=== PATIENT | female | born 1945 | race Caucasian/White ===

== ENCOUNTER → 2019-04-14 10:19 | Outpatient (BNVA) | payer MEDICARE, MEDICAID, SELFPAY | PROVIDERS: Family Provider Internal Medicine; PCP Internal Medicine; Visit Provider Nurse Practitioner | DX: M51.36 Other intervertebral disc degeneration, lumbar region (principal); M47.816 Spondylosis without myelopathy or radiculopathy, lumbar region; G47.00 Insomnia, unspecified; F17.220 Nicotine dependence, chewing tobacco, uncomplicated; Z79.891 Long term (current) use of opiate analgesic | CPT/HCPCS: 99214 ==

== ENCOUNTER → 2019-06-08 09:18 | Outpatient (BNVA) | payer MEDICARE, MEDICAID, SELFPAY | PROVIDERS: Family Provider Internal Medicine; PCP Internal Medicine; Visit Provider Nurse Practitioner | DX: Z76.89 Persons encountering health services in other specified circumstances (principal) | CPT/HCPCS: 99213 ==

== ENCOUNTER → 2019-09-22 08:48 | Outpatient (BNVA) | payer MEDICARE, MEDICAID, SELFPAY | PROVIDERS: Family Provider Internal Medicine; PCP Internal Medicine; Visit Provider Nurse Practitioner | DX: G89.29 Other chronic pain (principal); M54.42 Lumbago with sciatica, left side; M54.41 Lumbago with sciatica, right side; M47.816 Spondylosis without myelopathy or radiculopathy, lumbar region; M51.36 Other intervertebral disc degeneration, lumbar region; M54.9 Dorsalgia, unspecified; G47.00 Insomnia, unspecified; F17.220 Nicotine dependence, chewing tobacco, uncomplicated; Z79.891 Long term (current) use of opiate analgesic; Z71.6 Tobacco abuse counseling | CPT/HCPCS: 99213; 99214 ==

== ENCOUNTER 2019-11-17 19:51 | Inpatient (IN) | payer MEDICARE, MEDICAID, SELFPAY ==
[2019-11-17 19:52] VITALS: BP 178/102; PULSE 89; RESP 18; TEMP 36.7; O2SAT 96; BMI 22.1
--- NOTE | 2019-11-17 19:56 | CTR_ITS ---
PROCEDURE INFORMATION: Exam: CT Head Without Contrast Exam date and time: 11/17/2019 8:03 PM Age: 74 years old Clinical indication: Pain; Dizziness and weakness, extremity; Bilateral; Headache; Additional info: CHEN TECHNIQUE: Imaging protocol: Computed tomography of the head without contrast. Radiation optimization: All CT scans at this facility use at least one of these dose optimization techniques: automated exposure control; mA and/or kV adjustment per patient size (includes targeted exams where dose is matched to clinical indication); or iterative reconstruction. COMPARISON: No relevant prior studies available. RADIATION DOSE METRICS: Total DLP (mGy-cm): 793.19 FINDINGS: Brain: Mild cerebral atrophy and ischemic leukoencephalopathy. Ventricles: Normal. No ventriculomegaly. Bones/joints: Unremarkable. No acute fracture. Sinuses: Mild right ethmoid, sphenoid and frontal sinus disease. Mastoid air cells: Visualized mastoid air cells are well aerated. Vasculature: Severe calcified intracranial atherosclerotic vessel disease. Soft tissues: Unremarkable. CT/CT head wo con* [id number] IMPRESSION: 1. Mild right ethmoid, sphenoid and frontal sinus disease. 2. No acute intracranial findings. Radiation Dose CTDIVOL = (mGy): DLP = 793.19 (mGy-cm)
--- NOTE | 2019-11-17 19:56 | XR_ITS ---
WS: [id number] Portable AP upright chest, 11/17/2019 Clinical Data: weakness Comparison: PA and lateral chest, 10/07/2018. Findings: No nodules, masses or effusions are seen. The heart is normal. The pulmonary vascularity is not increased. There are bilateral lower lobe patchy opacities which will may represent atelectasis or early pneumonia. No pneumothorax is seen. The aortic arch and descending aorta show tortuosity. T here is a bone infarct or an chondroma in the proximal right humerus. XR/XR chest 1V portable [id number] Impression: 1. Bilateral lower lobe patchy opacities which could represent atelectasis or m inimal pneumonia. 2. Recommend repeat chest x-ray in 2-3 days. 3. Atherosclerosis.
--- NOTE | 2019-11-17 19:57 | ECG_ITS ---
[facility] Test Date: 2019-11-17 Pat Name: Catarina Joseph Department: Room: Gender: Female Cardiac Rn: : 1945 Requested By: Mary Gracia Order Number: [id number] Constantin MD: Ishan Celis M.D. Measurements Intervals [place] Rate: 82 P: 7 SC: 168 QRS: -5 QRSD: 98 T: 16 QT: 362 QTc: 424 Interpretive Statements SINUS RHYTHM POSSIBLE RIGHT VENTRICULAR CONDUCTION DELAY [RSR (QR) IN V1/V2] VOLTAGE CRITERIA FOR LVH [MEETS CRITERIA IN ONE OF: R(aVL), S(V1), R(V5), R(V5/V6)+S(V1)] Compared to ECG 04/17/2014 02:58:46 Left ventricular hypertrophy now present Electronically Signed On 11-18-2019 21:12:59 CDT by Ishan Celis M.D. [id number]
--- NOTE | 2019-11-17 20:08 | ED_ITS ---
HPI - Weakness General: Chief complaint: Weakness Stated complaint: weakness Time Seen by Provider: 11/17/19 19:51 Source: patient and EMS Mode of arrival: EMS Limitations: no limitations History of Present Illness: HPI Narrative: 74-year-old female states she has been having shakiness along with slight weakness over the last day. Per EMS she gets constipated after bowel movement she has these issues it seems it is been going on for months. She states she was constipated had a bowel movement today and was quite weak. She states she had some difficulty walking. She had a headache she rates a 4 out of 10. Denies any fevers. Denies any vomiting or diarrhea. MD Complaint: generalized weakness Associated symptoms: Reports headache(s); Denies chest pain, chills, dysuria, easy bruising or fever(s) Review of Systems Const: Denies: fever(s), chills, body aches or change in appetite Eyes: Denies: blurry vision or eye discomfort ENMT: Denies: throat pain or dental pain Card: Denies: chest pain Resp: Denies: dyspnea GI: Reports: constipation : Denies: dysuria Musc: Denies: neck pain or back pain Skin/Breast: Denies: rash Neuro: Reports: headache(s) and weakness in extremities Psych: Denies: depression Catalino/Lymph: Denies: easy bruising All/Imm: Denies: urticaria PFSH ED PFSH: Medical History (Updated 11/18/19 @ 00:47 by Mary Gracia MD) Chewing tobacco nicotine dependence Encounter for long-term opiate analgesic use Facet arthritis of lumbar region History of hemorrhoids hemorrhoidectomy Lumbar degenerative disc disease Opioid contract exists Surgical History History of intestinal surgery Dr. Sutherland-cleared blockage in the bowels Hx of appendectomy Hx of oophorectomy Hx of tubal ligation Family History Unknown Cancer Diabetes Heart disease Social History Smoking and tobacco status: current every day smoker smokeless tobacco Smokeless tobacco details: 1 can every 2-3 days Alcohol intake: never Physical Exam Const: COMMON NORMALS: no acute distress, patient oriented x3 and healthy appearing HENMT: COMMON NORMALS: normocephalic and atraumatic HEAD & SCALP: normocephalic and atraumatic Eye: COMMON NORMALS: Equal, round and reactive pupils present and EOMs intact bilaterally PUPIL: Yes Equal, round and reactive pupils present Neck/C-Spine: COMMON NORMALS: full ROM and supple Chest: COMMONS NORMALS: normal inspection of the chest and normal palpation of entire chest wall Resp: COMMON NORMALS: normal respiratory effort, No retractions, No use of accessory muscles and clear to auscultation bilaterally AUSCULTATION: clear to auscultation bilaterally Cardio: COMMON NORMALS: regular rate, regular rhythm and No murmurs present (Cardio) RATE: regular rate RHYTHM: regular rhythm GI: COMMON NORMALS: Normal to inspection, nondistended, normoactive bowel sounds present, Soft to palpation, non-tender and no masses PALPATION: Yes Soft to palpation Extremity: COMMON NORMALS: normal to inspection and full ROM Neuro: COMMON NORMALS: patient oriented x3, moves all extremities and no focal motor deficits Psych: COMMON NORMALS: mental status grossly normal, Normal thought process present and cooperative THOUGHT PROCESS: Normal thought process present Skin: COMMON NORMALS: no rashes or lesions noted and no wounds GENERAL SKIN EXAM: no rashes or lesions noted Course Vital Signs: Vital signs: Vital Signs Temperature 98.0 F 11/17/19 19:52 Pulse Rate 76 11/17/19 22:58 Respiratory Rate 16 11/17/19 22:58 Blood Pressure 208/109 11/17/19 22:58 Pulse Oximetry 94 11/17/19 22:58 MDM - Weakness MDM Narrative: Medical decision making narrative: 74-year-old female presents here with generalized weakness. Patient states she is having difficulty walking still. She is hyponatremic likely slightly dehydrated. Patient given IV fluids. Spoke to hospitalist will admit for observation to correct her sodium and for her weakness. Lab Data: Labs: Lab Results 11/17/19 11/17/19 11/17/19 Range/Units 18:55 18:55 18:55 WBC 8.6 (4.0-10.0) 10^3/ uL RBC 4.18 (4.1-5.3) 10^6/u L Hgb 11.6 (11.5-15.3) g/dL Hct 35.9 L (37.0-47.0) % MCV 85.9 (81-99) fL MCH 27.8 L (28.0-34.0) pg MCHC 32.3 (30.0-36.0) g/dL RDW 13.6 (12.1-15.1) % Plt Count 343 (130-400) 10^3/c mm MPV 11.1 H (7.4-10.4) fL Neut % (Auto) 56.9 % Lymph % (Auto) 31.7 % Owen % (Auto) 4.9 % Eos % (Auto) 5.4 % Baso % (Auto) 0.9 % Neut # (Auto) 4.90 (1.8-7.7) 10^3/u L Lymph # (Auto) 2.7 (0.8-4.8) 10^3/u L Owen # (Auto) 0.4 (0.2-0.9) 10^3/u L Eos # (Auto) 0.5 (0.0-0.8) 10^3/u L Baso # (Auto) 0.1 (0.0-0.1) 10^3/u L Nucleated RBC % (a uto) 0 % Nucleated RBCs # 0.0 /100WBC ESR 31 H (0-15) mm/hr Sodium 126 L (136-145) mmol/L Potassium 4.6 (3.5-5.1) mmol/L Chloride 89 L (98-107) mmol/L Carbon Dioxide 27 (22-29) mmol/L Anion Gap 14.6 (5-19) BUN 10 (8-23) mg/dL Creatinine 0.9 (0.5-0.9) mg/dL GFR Calculation Not Reportable Glucose 101 (65-115) mg/dL Calculated Osmolal ity 258 L (285-295) mOsm/k g Calcium 9.2 (8.5-10.5) mg/dL Total Bilirubin 0.3 (0.15-1.2) mg/dL AST 11 (0-32) U/L ALT 8 (0-33) U/L Alkaline Phosphata se 116 H (35-105) IU/L Total Protein 7.9 (6.6-8.7) g/dL Albumin 4.2 (3.5-5.2) g/dL Globulin 3.7 (1.3-4.6) g/dL Urine Color (Yellow) Urine Appearance (CLEAR) Urine pH (5-7) Ur Specific Gravit y (1.005-1.030) Urine Protein (Negative) Urine Glucose (UA) (Normal) Urine Ketones (Negative) Urine Blood (Negative) Urine Nitrate (Negative) Urine Bilirubin (NEGATIVE) Urine Urobilinogen (Negative) mg/dL Ur Leukocyte Teresita ase (Negative) Urine RBC (0-2) /hpf Urine WBC (0-5) /hpf Ur Squamous Epith Cells (0-5) Amorphous Sediment Urine Bacteria (NONE) 11/17/19 Range/Units 20:53 WBC (4.0-10.0) 10^3/ uL RBC (4.1-5.3) 10^6/u L Hgb (11.5-15.3) g/dL Hct (37.0-47.0) % MCV (81-99) fL MCH (28.0-34.0) pg MCHC (30.0-36.0) g/dL RDW (12.1-15.1) % Plt Count (130-400) 10^3/c mm MPV (7.4-10.4) fL Neut % (Auto) % Lymph % (Auto) % Owen % (Auto) % Eos % (Auto) % Baso % (Auto) % Neut # (Auto) (1.8-7.7) 10^3/u L Lymph # (Auto) (0.8-4.8) 10^3/u L Owen # (Auto) (0.2-0.9) 10^3/u L Eos # (Auto) (0.0-0.8) 10^3/u L Baso # (Auto) (0.0-0.1) 10^3/u L Nucleated RBC % (a uto) % Nucleated RBCs # /100WBC ESR (0-15) mm/hr Sodium (136-145) mmol/L Potassium (3.5-5.1) mmol/L Chloride (98-107) mmol/L Carbon Dioxide (22-29) mmol/L Anion Gap (5-19) BUN (8-23) mg/dL Creatinine (0.5-0.9) mg/dL GFR Calculation Glucose (65-115) mg/dL Calculated Osmolal ity (285-295) mOsm/k g Calcium (8.5-10.5) mg/dL Total Bilirubin (0.15-1.2) mg/dL AST (0-32) U/L ALT (0-33) U/L Alkaline Phosphata se (35-105) IU/L Total Protein (6.6-8.7) g/dL Albumin (3.5-5.2) g/dL Globulin (1.3-4.6) g/dL Urine Color Yellow (Yellow) Urine Appearance Cloudy (CLEAR) Urine pH 6 (5-7) Ur Specific Gravit y 1.010 (1.005-1.030) Urine Protein Neg (Negative) Urine Glucose (UA) Norm (Normal) Urine Ketones Negative (Negative) Urine Blood Neg (Negative) Urine Nitrate Negative (Negative) Urine Bilirubin Neg (NEGATIVE) Urine Urobilinogen Norm (Negative) mg/dL Ur Leukocyte Teresita ase Negative (Negative) Urine RBC 0-4 H (0-2) /hpf Urine WBC 0-4 H (0-5) /hpf Ur Squamous Epith Cells 0-4 H (0-5) Amorphous Sediment Not Reportable Urine Bacteria 2+ H (NONE) Imaging Data^: CT Head: Attestation: I personally reviewed and interpreted this imaging study as follows: Radiologist's impression: [place] [address] CT Scan Report Signed Patient: Catarina Joseph Unit #: [id number] : 1945 Age/Sex: 74 / F ADM Date: 0 Loc: ER Room/Bed: Attending Dr: Ordering Provider/Ordering MD: Mary Gracia MD Date of Service: 11/17/19 Procedure(s): CT head wo con* [id number] Accession Number(s): [id number] Report Number: [id number] PROCEDURE INFORMATION: Exam: CT Head Without Contrast Exam date and time: 11/17/2019 8:03 PM Age: 74 years old Clinical indication: Pain; Dizziness and weakness, extremity; Bilateral; Headache; Additional info: CHEN TECHNIQUE: Imaging protocol: Computed tomography of the head without contrast. Radiation optimization: All CT scans at this facility use at least one of these dose optimization techniques: automated exposure control; mA and/or kV adjustment per patient size (includes targeted exams where dose is matched to clinical indication); or iterative reconstruction. COMPARISON: No relevant prior studies available. RADIATION DOSE METRICS: Total DLP (mGy-cm): 793.19 FINDINGS: Brain: Mild cerebral atrophy and ischemic leukoencephalopathy. Ventricles: Normal. No ventriculomegaly. Bones/joints: Unremarkable. No acute fracture. Sinuses: Mild right ethmoid, sphenoid and frontal sinus disease. Mastoid air cells: Visualized mastoid air cells are well aerated. Vasculature: Severe calcified intracranial atherosclerotic vessel disease. Soft tissues: Unremarkable. CT/CT head wo con* [id number] IMPRESSION: 1. Mild right ethmoid, sphenoid and frontal sinus disease. 2. No acute intracranial findings. CT Abd/Pel: Radiologist's impression: [place] [address] CT Scan Report Signed Patient: Catarina Joseph Unit #: [id number] : 1945 Acct#:[id number] Age/Sex: 74 / F ADM Date: 11/17/19 Loc: ER Room/Bed: Attending Dr: Ordering Provider/Ordering MD: Mary Gracia MD Date of Service: 11/17/19 Procedure(s): CT chest abd pel w con* Accession Number(s): [id number] Report Number: [id number] PROCEDURE INFORMATION: Exam: CT Chest With Contrast Exam date and time: 11/17/2019 10:29 PM Age: 74 years old Clinical indication: Abdominal tenderness; Angina; Prior surgery; Surgery type: Appy, bowel, tubal, oophrectomy, hyst; Additional info: Abd pain TECHNIQUE: Imaging protocol: Computed tomography of the chest with intravenous contrast. Radiation optimization: All CT scans at this facility use at least one of these dose optimization techniques: automated exposure control; mA and/or kV adjustment per patient size (includes targeted exams where dose is matched to clinical indication); or iterative reconstruction. Contrast material: OMNI 300; Contrast volume: 75 ml; Contrast route: INTRAVENOUS (IV); COMPARISON: CT abdomen pelvis w con* [id number] 09/22/2013 1:16 PM RADIATION DOSE METRICS: Total DLP (mGy-cm): 1043.68 FINDINGS: Lungs: COPD/chronic bronchitis. Right middle lobe and lingula parenchymal scar with mild traction bronchiectasis. Mild apical scarring. No definite evidence of active interstitial or alveolar airspace disease. Very tiny pulmonary nodule anterior segment right upper lobe measuring less than 3 mm. No visible mucous plugging. Pleural space: Unremarkable. No pneumothorax. No pleural effusion. Heart: Cardiac structures and configuration without visible coronary artery disease. No visible pericardial effusion. Aorta: The thoracic aorta is nonaneurysmal. Mild arterial sclerotic disease. No visible intimal flap or dissection. Lymph nodes: No visible active middle mediastinal or hilar lymphadenopathy. Bones/joints: No visible active osseous pathology. Soft tissues: Cachexia. IMPRESSION: 1. No visible evidence of acute cardiopulmonary process. 2. Chronic lung disease as detailed in text above. 3. Very tiny pulmonary nodule anterior segment right upper lobe measuring less than 3 mm. For patients at low risk (minimal or absent history of smoking and of other known risk factors), no routine follow-up is indicated. For patients at high risk (history of smoking or of other known risk factors), consider optional CT at 12 months. (Paloma et al., Fleischner Society, 2017) . PROCEDURE INFORMATION: Exam: CT Abdomen And Pelvis With Contrast Exam date and time: 11/17/2019 10:29 PM Age: 74 years old Clinical indication: Abdominal tenderness; Angina; Prior surgery; Surgery type: Appy, bowel, tubal, oophrectomy, hyst; Additional info: Abd pain TECHNIQUE: Imaging protocol: Computed tomography of the abdomen and pelvis with intravenous contrast. Radiation optimization: All CT scans at this facility use at least one of these dose optimization techniques: automated exposure control; mA and/or kV adjustment per patient size (includes targeted exams where dose is matched to clinical indication); or iterative reconstruction. Contrast material: OMNI 300; Contrast volume: 75 ml; Contrast route: INTRAVENOUS (IV); COMPARISON: CT abdomen pelvis w con* [id number] 09/22/2013 1:16 PM RADIATION DOSE METRICS: Total DLP (mGy-cm): 1043.68 FINDINGS: Liver: Small simple left hepatic lobe cyst. Liver otherwise unremarkable. Gallbladder and bile ducts: Gallbladder free of cholelithiasis. No visible intra or extrahepatic biliary ectasia. Pancreas: Pancreas is atrophic. No visible pancreatic ductal ectasia. Spleen: Spleen unremarkable. Adrenals: Adrenal glands unremarkable. Kidneys and ureters: Very tiny angiomyolipoma equator left kidney. Right kidney unremarkable. No visible hydronephrosis or perinephric fluid bilaterally. No visible nephrolithiasis. Stomach and bowel: Very heavy fecal residue consistent with constipation/obstipation. Currently no visible evidence of bowel obstruction. No visible significant adynamic or reactive ileus. Appendix: Status post appendectomy. Intraperitoneal space: Unremarkable. No free air. No significant fluid collection. Vasculature: Portal vein patent. The abdominal aorta is nonaneurysmal. Mild arterial sclerotic disease. Lymph nodes: Unremarkable. No enlarged lymph nodes. Bladder: Urinary bladder unremarkable. Reproductive: Status post hysterectomy. Bones/joints: Advanced degenerative disease degenerative disc disease of the spine. Disc space height loss and vacuum disc phenomenon L1 through S1. Facet arthrosis. Osteopenia/osteoporosis. Scoliosis. Soft tissues: Unremarkable. CT/CT chest abd pel w con* IMPRESSION: Marked constipation/obstipation. 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
--- NOTE | 2019-11-17 20:08 | XR_ITS ---
WS: [id number] KUB, 11/17/2019 Clinical Data: constipation Comparison: Flat and upright abdomen, 04/17/2014. Findings: There is a large amount of fecal material throughout the colon. No abnormal intraabdominal masses or calcifications are seen. There is air within the small bowel. Th ere is no dilatated small bowel or evidence of obstruction. There is a dextroscoliosis of the lumbar spine. XR/XR KUB [id number] Impression: Large amount of fecal material throughout the colon.
[2019-11-17 20:21] VITALS: BP 149/91; PULSE 76; RESP 18; O2SAT 98
[2019-11-17 20:29] LABS: Basophils # 0.1 10^3/uL (0.0-0.1); Basophils % 0.9 %; Eosinophils # 0.5 10^3/uL (0.0-0.8); Eosinophils % 5.4 %; Hematocrit 35.9 % (37.0-47.0); Hemoglobin 11.6 g/dL (11.5-15.3); Lymphocytes # 2.7 10^3/uL (0.8-4.8); Lymphocytes % 31.7 %; Mean Corpuscular HGB Conc 32.3 g/dL (30.0-36.0); Mean Corpuscular Hemoglobin 27.8 pg (28.0-34.0); Mean Corpuscular Volume 85.9 fL (81-99); Mean Platelet Volume 11.1 fL (7.4-10.4); Monocytes # 0.4 10^3/uL (0.2-0.9); Monocytes % 4.9 %; Neutrophils % 56.9 %; Nucleated Red Blood Cells % 0 %; Platelet Count 343 10^3/cmm (130-400); Red Blood Count 4.18 10^6/uL (4.1-5.3); Red Cell Distribution Width 13.6 % (12.1-15.1); White Blood Count 8.6 10^3/uL (4.0-10.0)
[2019-11-17] MEDS: sodium chloride 0.9% 1,000 ML 999 ML IV (20:31)
[2019-11-17 21:07] VITALS: BP 143/98; PULSE 78; RESP 16; O2SAT 98
[2019-11-17 21:11] LABS: Alanine Aminotransferase 8 U/L (0-33); Albumin Level 4.2 g/dL (3.5-5.2); Alkaline Phosphatase 116 IU/L (35-105); Anion Gap 14.6 (5-19); Aspartate Amino Transferase 11 U/L (0-32); Blood Urea Nitrogen 10 mg/dL (8-23); Calcium 9.2 mg/dL (8.5-10.5); Carbon Dioxide 27 mmol/L (22-29); Chloride 89 mmol/L (98-107); Globulin 3.7 g/dL (1.3-4.6); Glucose 101 mg/dL (65-115); Osmolality Calculated 258 mOsm/kg (285-295); Potassium 4.6 mmol/L (3.5-5.1); Sodium 126 mmol/L (136-145); Total Bilirubin 0.3 mg/dL (0.15-1.2); Total Protein 7.9 g/dL (6.6-8.7)
[2019-11-17 21:20] LABS: Add Urine Microscopic? YES; Bilirubin Urine Neg (NEGATIVE); Blood Urine Neg (Negative); Glucose Urine UA Norm (Normal); Ketones Urine Negative (Negative); Leukocyte Esterase Urine Negative (Negative); Nitrate Urine Negative (Negative); Protein Urine Neg (Negative); RBC Urine 0-4 /hpf (0-2); Urine Appearance Cloudy (CLEAR); Urine Color Yellow (Yellow); Urobilinogen Urine Norm (Negative); pH Urine 6 (5-7)
[2019-11-17 21:21] LABS: Bacteria Urine 2+; Squamous Epithelial Cell Urine 0-4 (0-5); WBC Urine 0-4 /hpf (0-5)
[2019-11-17 21:35] LABS: Erythrocyte Sedimentation Rate 31 mm/hr (0-15)
--- NOTE | 2019-11-17 22:25 | CTR_ITS ---
PROCEDURE INFORMATION: Exam: CT Chest With Contrast Exam date and time: 11/17/2019 10:29 PM Age: 74 years old Clinical indication: Abdominal tenderness; Angina; Prior surgery; Surgery type: Appy, bowel, tubal, oophrectomy, hyst; Additional info: Abd pain TECHNIQUE: Imaging protocol: Computed tomography of the chest with intravenous contrast. Radiation optimization: All CT scans at this facility use at least one of these dose optimization techniques: automated exposure control; mA and/or kV adjustment per patient size (includes targeted exams where dose is matched to clinical indication); or iterative reconstruction. Contrast material: OMNI 300; Contrast volume: 75 ml; Contrast route: INTRAVENOUS (IV); COMPARISON: CT abdomen pelvis w con* [id number] 09/22/2013 1:16 PM RADIATION DOSE METRICS: Total DLP (mGy-cm): 1043.68 FINDINGS: Lungs: COPD/chronic bronchitis. Right middle lobe and lingula parenchymal scar with mild traction bronchiectasis. Mild apical scarring. No definite evidence of active interstitial or alveolar airspace disease. Very tiny pulmonary nodule anterior segment right upper lobe measuring less than 3 mm. No visible mucous plugging. Pleural space: Unremarkable. No pneumothorax. No pleural effusion. Heart: Cardiac structures and configuration without visible coronary artery disease. No visible pericardial effusion. Aorta: The thoracic aorta is nonaneurysmal. Mild arterial sclerotic disease. No visible intimal flap or dissection. Lymph nodes: No visible active middle mediastinal or hilar lymphadenopathy. Bones/joints: No visible active osseous pathology. Soft tissues: Cachexia. IMPRESSION: 1. No visible evidence of acute cardiopulmonary process. 2. Chronic lung disease as detailed in text above. 3. Very tiny pulmonary nodule anterior segment right upper lobe measuring less than 3 mm. For patients at low risk (minimal or absent history of smoking and of other known risk factors), no routine follow-up is indicated. For patients at high risk (history of smoking or of other known risk factors), consider optional CT at 12 months. (Paloma et al., Fleischner Society, 2017) . PROCEDURE INFORMATION: Exam: CT Abdomen And Pelvis With Contrast Exam date and time: 11/17/2019 10:29 PM Age: 74 years old Clinical indication: Abdominal tenderness; Angina; Prior surgery; Surgery type: Appy, bowel, tubal, oophrectomy, hyst; Additional info: Abd pain TECHNIQUE: Imaging protocol: Computed tomography of the abdomen and pelvis with intravenous contrast. Radiation optimization: All CT scans at this facility use at least one of these dose optimization techniques: automated exposure control; mA and/or kV adjustment per patient size (includes targeted exams where dose is matched to clinical indication); or iterative reconstruction. Contrast material: OMNI 300; Contrast volume: 75 ml; Contrast route: INTRAVENOUS (IV); COMPARISON: CT abdomen pelvis w con* [id number] 09/22/2013 1:16 PM RADIATION DOSE METRICS: Total DLP (mGy-cm): 1043.68 FINDINGS: Liver: Small simple left hepatic lobe cyst. Liver otherwise unremarkable. Gallbladder and bile ducts: Gallbladder free of cholelithiasis. No visible intra or extrahepatic biliary ectasia. Pancreas: Pancreas is atrophic. No visible pancreatic ductal ectasia. Spleen: Spleen unremarkable. Adrenals: Adrenal glands unremarkable. Kidneys and ureters: Very tiny angiomyolipoma equator left kidney. Right kidney unremarkable. No visible hydronephrosis or perinephric fluid bilaterally. No visible nephrolithiasis. Stomach and bowel: Very heavy fecal residue consistent with constipation/obstipation. Currently no visible evidence of bowel obstruction. No visible significant adynamic or reactive ileus. Appendix: Status post appendectomy. Intraperitoneal space: Unremarkable. No free air. No significant fluid collection. Vasculature: Portal vein patent. The abdominal aorta is nonaneurysmal. Mild arterial sclerotic disease. Lymph nodes: Unremarkable. No enlarged lymph nodes. Bladder: Urinary bladder unremarkable. Reproductive: Status post hysterectomy. Bones/joints: Advanced degenerative disease degenerative disc disease of the spine. Disc space height loss and vacuum disc phenomenon L1 through S1. Facet arthrosis. Osteopenia/osteoporosis. Scoliosis. Soft tissues: Unremarkable. CT/CT chest abd pel w con* IMPRESSION: Marked constipation/obstipation. Radiation Dose CTDIVOL = (mGy): DLP = 1043.68~1043.68 (mGy-cm)
[2019-11-17] MEDS: iohexol 300 mg/mL 100 mL Btl IV (22:50)
[2019-11-17 22:58] VITALS: BP 208/109; PULSE 76; RESP 16; O2SAT 94
[2019-11-17] MEDS: morphine 4 mg/mL SDV 1 mL IVP (23:08)
[2019-11-17] MEDS: hyDRALAzine 20 mg/mL INJ 1 mL 10 MG IVP (23:08)
[2019-11-17] MEDS: ondansetron 2 mg/ML SDV 2 mL 4 MG IVP (23:09)
[2019-11-18] VITALS (9 sets, daily range): BP systolic 93–147; BP diastolic 55–79; PULSE 75–95; RESP 16–20; TEMP 36.4–36.9; O2SAT 94–97
--- NOTE | 2019-11-18 02:22 | PM.HP ---
Providers/Chief Complaint Admitting Physician: Kobe Rocha MD Primary Care Provider: Juan Diego Teixeira MD Chief Complaint: weakness History of Present Illness Catarina Joseph is a 74 year old female who presents with generalized weakness for the last 4 to 5 days. She states she is always a little bit weak. She has chronic constipation but has been having bowel movements lately. She reports a headache for the last 3 to 4 days. She states she drinks quite a bit of water, but does not always eat so much. No vomiting. Certainly no diarrhea. No fever, exposure to COVID or personal history of COVID. Does have an occasional cough which is attributed to her COPD and has not changed in years. Review of Systems General: Reports: 10 or more systems reviewed and unremarkable except in HPI and below Const: Reports: fatigue and malaise; Denies: fever(s) or chills Eyes: Denies: change in vision ENMT: Denies: throat pain Card: Denies: chest pain Resp: Denies: dyspnea GI: Denies: abdominal pain : Denies: flank pain Musc: Denies: neck pain Skin/Breast: Denies: rash Neuro: Reports: headache(s) Endo: Denies: polyuria Catalino/Lymph: Denies: easy bruising All/Imm: Denies: urticaria Medications/Allergies Home Medications Medication Instructions Recorded Confirmed Last Taken Type folic acid 1 mg tablet 1 mg PO DAILY #90 tab 03/29/19 11/17/19 11/17/19 Rx albuterol sulfate 90 mcg/actuation 2 puff INHALATION TID PRN gm 04/11/19 11/17/19 Unknown History aerosol inhaler aspirin 81 mg tablet,delayed 81 mg PO QDAY 04/11/19 11/17/19 11/17/19 History release docusate sodium 100 mg capsule 100 mg PO BID 04/11/19 11/17/19 Unknown History polyethylene glycol 3350 17 17 gm PO QDAY 04/11/19 11/17/19 Unknown History gram/dose oral powder diclofenac sodium 75 mg 75 mg PO BID #60 tab 04/14/19 11/17/19 11/17/19 Rx tablet,delayed release famotidine 20 mg tablet 20 mg PO BID 04/14/19 11/17/19 Unknown History citalopram 20 mg tablet 20 mg PO .1 day #30 tab 09/19/19 11/17/19 11/17/19 Rx amitriptyline 50 mg tablet 50 mg PO .at bedtime PRN #30 tab 09/22/19 11/17/19 11/16/19 Rx buspirone 15 mg tablet 15 mg PO BID 09/22/19 11/17/19 Unknown History fentanyl 75 mcg/hr transdermal 1 patch TRANSDERMA Q72H 30 Days 09/22/19 11/17/19 11/17/19 Rx patch #10 each gabapentin 600 mg tablet 600 mg PO TID #90 tab 09/22/19 11/17/19 11/17/19 Rx hydrocodone 10 mg-acetaminophen 1 tab PO .5 times day PRN 30 Days 09/22/19 11/17/19 11/16/19 Rx 325 mg tablet #150 tab Allergies Allergy/AdvReac Type Severity Reaction Status Date / Time levofloxacin Allergy Unknown Verified 11/17/19 21:20 PFSH Acute PFSH: Medical History (Updated 11/18/19 @ 02:24 by Kobe Rocha MD) Chewing tobacco nicotine dependence Constipation COPD (chronic obstructive pulmonary disease) Depression DJD (degenerative joint disease) Encounter for long-term opiate analgesic use Facet arthritis of lumbar region GERD (gastroesophageal reflux disease) History of hemorrhoids hemorrhoidectomy Lumbar degenerative disc disease Opioid contract exists Tobacco dependency Surgical History History of intestinal surgery Dr. Sutherland-cleared blockage in the bowels Hx of appendectomy Hx of oophorectomy Hx of tubal ligation Family History Unknown Cancer Diabetes Heart disease Social History Smoking and tobacco status: current every day smoker smokeless tobacco Smokeless tobacco details: 1 can every 2-3 days Alcohol intake: never Vitals/I&O/Wt Last Vital Signs Temp 98.3 F 11/18/19 02:07 Pulse 94 11/18/19 02:07 Resp 18 11/18/19 02:07 BP 147/79 11/18/19 02:07 Pulse Ox 96 11/18/19 02:07 Weight last 48 hrs Weight 56.699 kg Physical Exam Narrative: EXAM NARRATIVE: General exam is a conversant and pleasant female in no apparent distress HEENT: Pupils equally round. Oropharynx clear. Neck is supple no lymphadenopathy or thyromegaly Cardiovascular regular rate and rhythm without murmur, no S3 or S4. Lungs clear to auscultation bilaterally. Distant lung sounds bilaterally. Abdomen is soft, nontender. Positive bowel sounds. No obvious organomegaly was deferred Extremities no cyanosis clubbing or edema, cap refill brisk Skin no rash Neuro no focal deficits Data : 11/17/19 18:55 11/17/19 18:55 Other data: CT head, no acute changes CT chest abdomen and pelvis, obstipation, tiny pulmonary nodule, chronic lung disease LFTs normal with the exception of alk phos which is slightly high. Urinalysis 0-4 reds, 0-4 whites A&P Assessment and plan (1) Hyponatremia: Check TSH, cortisol level Fluid restrict 1200 cc Repeat BMP later this morning Status: Acute (2) Weakness: Likely multifactorial. Certainly has multiple medicines that could cause weakness, as well as low sodium. Check magnesium level Reduce Neurontin to 300 mg 3 times daily She reports she is taking 75 mg of amitriptyline at night. This will be reduced to 50 mg with plans to continue to taper this Could consider reduction in narcotics as well. Status: Acute (3) Constipation: Bowel regimen ordered Status: Acute (4) Tobacco dependency: Counseled 3 to 5 minutes on abstinence Status: Acute Additional A&P Information Chronic pain syndrome. Continue fentanyl and pain medicine currently COPD. DuoNeb as needed Gastroesophageal reflux disease Depression/anxiety DJD Multiple other medical problems as listed in past medical history Full code Lovenox for DVT prophylaxis Attestations Medical Necessity Statement*: Will need less than 2 midnight stay for evaluation and treatment of hyponatremia and weakness. 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
[2019-11-18 03:01] LABS: Magnesium 2.1 mg/dL (1.7-2.3); Thyroid Stimulating Hormone 0.52 uIU/mL (0.27-4.20)
[2019-11-18] MEDS: enoxaparin 40 mg/0.4 mL Syringe SUBCUT (03:30)
[2019-11-18 05:47] LABS: Blood Urea Nitrogen 8 mg/dL (8-23); Carbon Dioxide 27 mmol/L (22-29); Chloride 95 mmol/L (98-107); Creatinine Clr Calc Pharmacy 54.5329; Glucose 85 mg/dL (65-115); Osmolality Calculated 265 mOsm/kg (285-295); Sodium 130 mmol/L (136-145)
[2019-11-18 05:53] LABS: Cortisol Random 6.85 ug/mL (2.47-19.5)
[2019-11-18] MEDS: sennosides-docusate Tablet 2 TAB PO ×2 (08:25→18:27)
[2019-11-18] MEDS: famotidine 20 mg Tablet PO ×2 (08:25→18:26)
[2019-11-18] MEDS: aspirin 81 mg EC Tablet PO (08:25)
[2019-11-18] MEDS: polyethylene glycol 3350 Pkt 17 gm PO ×2 (08:25→18:27)
[2019-11-18] MEDS: gabapentin 300 mg Capsule PO ×3 (08:25→20:23)
[2019-11-18] MEDS: citalopram 20 mg Tablet PO (08:25)
[2019-11-18] MEDS: HYDROcodone-acetaminophen 10-325 mg Tablet 1 TAB PO ×3 (08:28→20:24)
--- NOTE | 2019-11-18 10:55 | PC.OT ---
Attempted to see patient for eval, refused twice, stated she would like to try tomorrow as she is just too tired today. Will attempt OT eval later.
--- NOTE | 2019-11-18 13:45 | PC.CHAP ---
Pastoral Care Encounter/Spiritual Assessment Type of Contact [] Declined residential solar sales consultant visit [] Patient/Family/Request visit [] Outpatient visit [] Follow-up visit [] Physician referral [] Code/Alert [x] Routine visit [] Staff referral [] Actively dying [] Patient sleeping [] Family support [] [] Out of room [] Palliative care [] [] Receiving care in room [] Pre-surgical visit [] Trauma [] Long length of stay [] ICU visit [] Other: Relational/Emotional Strength [] Patient feels connected with others/family/visitors/staff [] Distress [] Loneliness/isolation [] Abandonment Spirituality of Patient [] Person of Irene [] Attends Yazdanism of their Irene [x] Believes in Prayer [] Reads Bible or Judaism materials [x] There are Spiritual issues to be addressed Plan Coordinator Interventions [x] Prayer [x] Active listening [x] Non-anxious presence [x] Spiritual/emotional support [] Crisis/trauma care [] Spiritual counseling [] Bereavement support [] Provided bereavement packet [] Provided Bible/devotional materials [] Provided toy/stuffed animal, coloring book to patient or family member [] Provided Communion [] Anointing/[place] [] Salvation [] Completed spiritual assessment [] Other: Impact on Illness or Injury [] Angry [] Fearful [x] Anxious [] Often cries [] Exhaustion [] Unable to work [] Unable to attend zoroastrian [] Unable to walk/stand [] Unable to read [] Unable to drive [] Unable to eat/drink [] Unable to sleep [x] Unable to be with family [] Patient intubated [] Other: Summary Patient seemed anxious and unsettled. She kept nervously playing with her rings while speaking with the residential solar sales consultant. When asked about her family she stated I guess they are alright. in such a way as to give the impression she didn't have close contact with them. She asked the residential solar sales consultant to pray for her health and everyone else that was in the hospital. Plan Coordinator prayed with the patient and told her to let her nursing staff know if she needed a residential solar sales consultant for any reason. Patient was visited by Plan Coordinator Benny Moss. Time spent with patient 7 minutes
--- NOTE | 2019-11-18 14:00 | PC.RESP ---
SMOKING CESSATION AND PULMONARY REHAB INFORMATION SENT TO PATIENT.
--- NOTE | 2019-11-18 16:25 | P.PN_ITS ---
Subjective Subjective: Interval history: No acute overnight events. Sodium improving now at 130. No new symptoms, continues to feel weak. 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 Certainly has multiple medicines that could cause weakness, as well as low sodium. magnesium level adequate at 2.1 Reduced Neurontin to 300 mg 3 times daily Amitriptyline reduced to 50 mg Status: Acute (3) Constipation: Bowel regimen ordered Status: Acute (4) Tobacco dependency: Counseled 3 to 5 minutes on abstinence Status: Acute Additional A&P Information Chronic pain syndrome. Continue fentanyl and pain medicine currently COPD. 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
[2019-11-18 22:36] LABS: Potassium, Radom Urine 20 mmol/L; Urine Random Chloride 21 mmol/L
[2019-11-18 22:41] LABS: Urine Random Sodium 17 mmol/L
[2019-11-19] VITALS (9 sets, daily range): BP systolic 103–164; BP diastolic 61–92; PULSE 69–89; RESP 16–18; TEMP 36.7–36.9; O2SAT 90–98
[2019-11-19] MEDS: acetaminophen 325 mg Tablet 650 MG PO ×2 (00:44→11:29)
[2019-11-19] MEDS: enoxaparin 40 mg/0.4 mL Syringe SUBCUT (02:35)
[2019-11-19 05:38] LABS: Basophils # 0.1 10^3/uL (0.0-0.1); Eosinophils # 0.7 10^3/uL (0.0-0.8); Eosinophils % 8.3 %; Hemoglobin 9.5 g/dL (11.5-15.3); Lymphocytes # 2.9 10^3/uL (0.8-4.8); Lymphocytes % 35.1 %; Mean Corpuscular HGB Conc 31.7 g/dL (30.0-36.0); Mean Corpuscular Hemoglobin 27.9 pg (28.0-34.0); Mean Corpuscular Volume 88.2 fL (81-99); Monocytes # 0.6 10^3/uL (0.2-0.9); Monocytes % 7.2 %; Neutrophils % 48.2 %; Nucleated Red Blood Cells % 0 %; Platelet Count 275 10^3/cmm (130-400); Red Cell Distribution Width 13.7 % (12.1-15.1); White Blood Count 8.3 10^3/uL (4.0-10.0)
[2019-11-19 05:58] LABS: Alanine Aminotransferase 7 U/L (0-33); Albumin Level 3.5 g/dL (3.5-5.2); Alkaline Phosphatase 96 IU/L (35-105); Anion Gap 11.7 (5-19); Aspartate Amino Transferase 10 U/L (0-32); Blood Urea Nitrogen 13 mg/dL (8-23); Calcium 8.8 mg/dL (8.5-10.5); Carbon Dioxide 27 mmol/L (22-29); Chloride 91 mmol/L (98-107); Globulin 2.8 g/dL (1.3-4.6); Glucose 100 mg/dL (65-115); Osmolality Calculated 256 mOsm/kg (285-295); Potassium 4.7 mmol/L (3.5-5.1); Sodium 125 mmol/L (136-145); Total Bilirubin 0.2 mg/dL (0.15-1.2); Total Protein 6.3 g/dL (6.6-8.7)
[2019-11-19] MEDS: sodium chloride 0.9% 1,000 ML 75 ML IV (08:49)
[2019-11-19] MEDS: aspirin 81 mg EC Tablet PO (08:49)
[2019-11-19] MEDS: famotidine 20 mg Tablet PO ×2 (08:49→18:37)
[2019-11-19] MEDS: polyethylene glycol 3350 Pkt 17 gm PO (08:49)
[2019-11-19] MEDS: citalopram 20 mg Tablet PO (08:49)
[2019-11-19] MEDS: sennosides-docusate Tablet 2 TAB PO (08:49)
[2019-11-19] MEDS: HYDROcodone-acetaminophen 10-325 mg Tablet 1 TAB PO ×3 (08:50→23:29)
[2019-11-19] MEDS: gabapentin 300 mg Capsule PO ×3 (08:50→21:27)
[2019-11-19 13:24] LABS: Sodium 126 mmol/L (136-145)
--- NOTE | 2019-11-19 16:34 | P.PN_ITS ---
Subjective Subjective: Interval history: Sodium dropped to 126 this morning. Patient overall denies any new complaints. She has remained afebrile hemodynamically stable. Tried IV fluid with normal saline without any change Medications: Reviewed: Yes Vitals/I&O/Wt Last Vital Signs Temp 98.4 F 11/19/19 15:00 Pulse 89 11/19/19 15:00 Resp 16 11/19/19 15:00 BP 110/72 11/19/19 15:00 Pulse Ox 92 11/19/19 11:00 11/19/19 11/19/19 11/19/19 06:59 14:59 22:59 Intake Total 720 / 1860 660 / 660 Output Total 1600 / 2302 200 / 200 600 / 800 Balance -880 / -442 460 / 460 -600 / -140 Weight last 48 hrs Weight 63.367 kg Weight 63.531 kg Weight 56.699 kg Physical Exam Narrative: EXAM NARRATIVE: GEN: Awake, alert and oriented, no acute distress CVS: S1S2 N RS: CTA B/L Abd: Soft, nt/nd , bs+ 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 Start p.o. salt tabs twice daily and monitor sodium in the morning. Status: Acute (2) Weakness: Likely multifactorial. Certainly has multiple medicines that could cause weakness, as well as low sodium. Magnesium level adequate at 2.1 Reduced Neurontin to 300 mg 3 times daily Amitriptyline reduced to 50 mg Status: Acute (3) Constipation: Bowel regimen ordered Status: Acute (4) Tobacco dependency: Counseled 3 to 5 minutes on abstinence Status: Acute Additional A&P Information Chronic pain syndrome. Continue fentanyl and pain medicine currently COPD. DuoNeb as needed Gastroesophageal reflux disease Depression/anxiety DJD Multiple other medical problems as listed in past medical history Full code Lovenox for DVT prophylaxis Attestations Medical Necessity Statement*: Changed to inpatient as sodium dropped again to 125. 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
[2019-11-19] MEDS: sodium chloride 1 gm Tablet PO (18:36)
[2019-11-20] VITALS: BP 123/66; PULSE 76; RESP 16; TEMP 36.7; O2SAT 96
[2019-11-20] MEDS: enoxaparin 40 mg/0.4 mL Syringe SUBCUT (03:10)
[2019-11-20 04:00] VITALS: BP 124/73; PULSE 78; RESP 14; TEMP 36.4; O2SAT 94
--- NOTE | 2019-11-20 05:50 | PC.NURSE ---
SHIFT SUMMARY Has had a good night. Medicated for back pain c/o with po Hydrocodone. Has Fentanyl patch in place. Remains on 1200ml fluid restriction and is compliant with this. Says she really wants a chew of tobacco Has urinated well and had couple of BM's this shift.
[2019-11-20] MEDS: HYDROcodone-acetaminophen 10-325 mg Tablet 1 TAB PO (06:33)
[2019-11-20 06:44] LABS: Alanine Aminotransferase 10 U/L (0-33); Albumin Level 3.8 g/dL (3.5-5.2); Alkaline Phosphatase 97 IU/L (35-105); Anion Gap 9.3 (5-19); Aspartate Amino Transferase 15 U/L (0-32); Blood Urea Nitrogen 12 mg/dL (8-23); Carbon Dioxide 30 mmol/L (22-29); Chloride 98 mmol/L (98-107); Globulin 2.9 g/dL (1.3-4.6); Glucose 77 mg/dL (65-115); Osmolality Calculated 271 mOsm/kg (285-295); Potassium 4.3 mmol/L (3.5-5.1); Sodium 133 mmol/L (136-145); Total Bilirubin 0.2 mg/dL (0.15-1.2); Total Protein 6.7 g/dL (6.6-8.7)
[2019-11-20 07:55] VITALS: BP 138/82; PULSE 78; RESP 18; TEMP 36.5; O2SAT 96
[2019-11-20] MEDS: famotidine 20 mg Tablet PO (08:24)
[2019-11-20] MEDS: aspirin 81 mg EC Tablet PO (08:24)
[2019-11-20] MEDS: citalopram 20 mg Tablet PO (08:24)
[2019-11-20] MEDS: sodium chloride 1 gm Tablet PO (08:25)
[2019-11-20] MEDS: gabapentin 300 mg Capsule PO (08:25)
[2019-11-20 11:16] VITALS: PULSE 85; RESP 17; O2SAT 95
[2019-11-20 11:31] VITALS: BP 130/68; PULSE 64; RESP 20; TEMP 36.4; O2SAT 96
--- NOTE | 2019-11-20 11:44 | P.DS_ITS ---
Discharge Providers Date of Admission: 11/19/19 16:15 Date of Discharge: November 20, 2019 Attending Provider at Admission: Kobe Rocha MD Attending Provider at Discharge: Katharina Walker MD Primary Care Provider: Juan Diego Teixeira MD Diagnoses at Discharge Discharge Diagnosis (1) Hyponatremia: Status: Acute (2) Weakness: Status: Acute (3) Constipation: Status: Acute (4) Tobacco dependency: Status: Acute Reason for Visit Reason for Visit: weakness Hospital Course Discharge Summary: Catarina Joseph is a 74 year old female who presents with generalized weakness for the last 4 to 5 days. She states she is always a little bit weak. She has chronic constipation but has been having bowel movements lately. She had also complained of a left sided headache upon admission. Does have an occasional cough which is attributed to her COPD and has not changed in years. She was noted to have hyponatremia with Na 125-126. Findings included TSH within range at 0.52, cortisol level random normal at 6.85, Fluid restrict 1200 cc, repeat BMP with sodium now at 133, which is her baseline. She improved with fluid restriction and salt supplementation. HEr medications were adjusted to Reduced Neurontin to 300 mg 3 times daily Amitriptyline reduced to [address] CAP with No visible evidence of acute cardiopulmonary process. Very tiny pulmonary nodule anterior segment right upper lobe measuring less than 3 mm. Marked constipation/obstipation. She received multiple laxatives while in the hospital and was able to have 2-3BM prior to discharge. CT head was done for headache and showed No acute intracranial findings. 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 Discharge Data Data Completed and Pending: Completed Studies During Hospitalization Category Date Time Status CT chest abd pel w con* Urgent Cat Scan 11/17/19 22:[address] head wo con* 7 0450 Urgent Cat Scan 11/17/19 19:56 Completed XR KUB [id number] Stat Exams 11/17/19 20:08 Completed XR chest 1V ivanna ble [id number] Urgent Exams 11/17/19 19:56 Completed Labs from last 24 hours 11/20/19 11/19/19 04:55 12:58 Sodium 133 L 126 L Potassium 4.3 Chloride 98 Carbon Dioxide 30 H Anion Gap 9.3 BUN 12 Creatinine 0.7 GFR Calculation Not Reportable Glucose 77 Calculated Osmolal ity 271 L Calcium 9.0 Total Bilirubin 0.2 AST 15 ALT 10 Alkaline Phosphata se 97 Total Protein 6.7 Albumin 3.8 Globulin 2.9 Vitals: Last Vital Signs Temp 97.6 F 11/20/19 11:31 Pulse 64 11/20/19 11:31 Resp 20 H 11/20/19 11:31 BP 130/68 11/20/19 11:31 Pulse Ox 96 11/20/19 11:31 Discharge Plan Discharge Patient Disposition: Home Condition: Stable Prescriptions: New polyethylene glycol 3350 17 gram Powder In Packet 17 g PO BID PRN (Reason: constipation) Qty: 0 RF: 0 sennosides-docusate sodium 8.6-50 mg Tablet 2 tab PO BID PRN (Reason: prn) Qty: 0 RF: 0 Continued famotidine 20 mg tablet 20 mg PO BID RF: 0 diclofenac sodium 75 mg tablet,delayed release (DR/EC) 75 mg PO BID Qty: 60 RF: 4 albuterol sulfate [ProAir HFA] 90 mcg/actuation HFA aerosol inhaler 2 puff INHALATION TID PRN (Reason: Shortness Of Breath) RF: 0 aspirin 81 mg tablet,delayed release (DR/EC) 81 mg PO QDAY RF: 0 docusate sodium [Colace] 100 mg capsule 100 mg PO BID RF: 0 polyethylene glycol 3350 [Miralax] 17 gram/dose powder 17 gm PO QDAY RF: 0 buspirone 15 mg tablet 15 mg PO BID RF: 0 amitriptyline 50 mg tablet 50 mg PO .at bedtime PRN (Reason: insomnia) Qty: 30 RF: 2 hydrocodone-acetaminophen 10-325 mg tablet 1 tab PO .5 times day PRN (Reason: pain) 30 Days Qty: 150 RF: 0 fentanyl 75 mcg/hr patch 72 hour 1 patch TRANSDERMA Q72H 30 Days Qty: 10 RF: 0 folic acid 1 mg tablet 1 mg PO DAILY Qty: 90 RF: 3 citalopram [Celexa] 20 mg tablet 20 mg PO .1 day Qty: 30 RF: 3 Changed gabapentin 600 mg tablet 300 mg PO TID Qty: 90 RF: 2 Discharge Orders: Discharge Order (Routine); Ordered 11/20/19 Ordered By: Katharina Walker Referrals: Juan Diego Teixeira MD [Primary Care Provider] - 4-7 days Discharge Diet: Usual diet Discharge Activity: Resume usual activity Activity Restrictions/Additional Instructions: take liberal salt in your diet Discharge Attestations Time Spent in Discharge Care*: less than 30 min Quality Metrics Clinical Quality Measures During this hospital stay, did patient experience: None Coding Level of Care Code Acute Curing Machine Operator for g Fwd Diagnoses Hyponatremia E87.1 Weakness R53.1 Constipation K59.00 Tobacco dependency F17.200
[2019-11-20 12:22] VITALS: BP 130/68; PULSE 64; RESP 20; TEMP 36.4; O2SAT 96
== END 2019-11-20 14:00 | disposition home or self-care (01) | DRG 641 ==
LOC: ER 11-18 00:47 → MEDSURG 11-18 01:03
PROVIDERS: Emergency Medicine; Admitting Provider Internal Medicine; PCP Internal Medicine; Visit Provider Student in an Organized Health Care Education/Training Program
DX: E87.1 Hypo-osmolality and hyponatremia (principal); K59.09 Other constipation; J44.9 Chronic obstructive pulmonary disease, unspecified; F17.220 Nicotine dependence, chewing tobacco, uncomplicated; M47.816 Spondylosis without myelopathy or radiculopathy, lumbar region; K21.9 Gastro-esophageal reflux disease without esophagitis; G89.4 Chronic pain syndrome; F41.8 Other specified anxiety disorders; R53.1 Weakness; Z79.51 Long term (current) use of inhaled steroids; Z79.82 Long term (current) use of aspirin; Z79.891 Long term (current) use of opiate analgesic
CPT/HCPCS: 12345; 36415; 70450; 71045; 71260; 74018; 74177; 80048; 80053; 81001; 82436; 82533; 83735; 84133; 84295; 84300; 84443; 85025; 85651; 93005; 96372; 97110; 97116; 97161; 97165; 97530; 97535; 99283; G0378; J0360; J1650; J2270; J2405; J7030; Q9967

== ENCOUNTER → 2019-11-24 13:48 | Outpatient (BNVA) | payer MEDICARE, MEDICAID, SELFPAY | PROVIDERS: PCP Internal Medicine; Visit Provider Anesthesiology | DX: G89.29 Other chronic pain (principal); M47.816 Spondylosis without myelopathy or radiculopathy, lumbar region; M51.36 Other intervertebral disc degeneration, lumbar region; M54.9 Dorsalgia, unspecified; G47.00 Insomnia, unspecified; F17.220 Nicotine dependence, chewing tobacco, uncomplicated; Z79.891 Long term (current) use of opiate analgesic | CPT/HCPCS: 99213; 99214 ==

== ENCOUNTER → 2020-01-19 12:48 | Outpatient (BNVA) | payer MEDICARE, MEDICAID, SELFPAY | PROVIDERS: PCP Internal Medicine; Visit Provider Anesthesiology | DX: J06.9 Acute upper respiratory infection, unspecified (principal) | CPT/HCPCS: 87635 ==

== ENCOUNTER → 2020-01-26 13:21 | Outpatient (BNVA) | payer MEDICARE, MEDICAID, SELFPAY | PROVIDERS: PCP Internal Medicine; Visit Provider Anesthesiology | DX: G89.29 Other chronic pain (principal); M47.816 Spondylosis without myelopathy or radiculopathy, lumbar region; M51.36 Other intervertebral disc degeneration, lumbar region; G47.00 Insomnia, unspecified; M54.9 Dorsalgia, unspecified; F17.220 Nicotine dependence, chewing tobacco, uncomplicated; Z79.891 Long term (current) use of opiate analgesic | CPT/HCPCS: 99213; 99214 ==

== ENCOUNTER → 2020-04-04 10:32 | Outpatient (BNVA) | payer MEDICARE, MEDICAID, SELFPAY | PROVIDERS: PCP Internal Medicine; Visit Provider Nurse Practitioner | DX: G89.29 Other chronic pain (principal); M54.9 Dorsalgia, unspecified; M47.816 Spondylosis without myelopathy or radiculopathy, lumbar region; M51.36 Other intervertebral disc degeneration, lumbar region; M25.551 Pain in right hip; M25.552 Pain in left hip; G47.00 Insomnia, unspecified; F17.220 Nicotine dependence, chewing tobacco, uncomplicated; Z79.891 Long term (current) use of opiate analgesic | CPT/HCPCS: 99213 ==

== ENCOUNTER → 2020-05-31 09:33 | Outpatient (BNVA) | payer MEDICARE, MEDICAID, SELFPAY | PROVIDERS: PCP Internal Medicine; Visit Provider Nurse Practitioner | DX: G89.29 Other chronic pain (principal); M47.816 Spondylosis without myelopathy or radiculopathy, lumbar region; M51.36 Other intervertebral disc degeneration, lumbar region; G47.00 Insomnia, unspecified; M54.9 Dorsalgia, unspecified; R54 Age-related physical debility; F17.220 Nicotine dependence, chewing tobacco, uncomplicated; Z79.891 Long term (current) use of opiate analgesic; Z71.6 Tobacco abuse counseling | CPT/HCPCS: 99213 ==

== ENCOUNTER → 2020-07-25 14:06 | Outpatient (BNVA) | payer MEDICARE, MEDICAID, SELFPAY | PROVIDERS: PCP Internal Medicine; Visit Provider Nurse Practitioner | DX: G89.29 Other chronic pain (principal); M47.816 Spondylosis without myelopathy or radiculopathy, lumbar region; M51.36 Other intervertebral disc degeneration, lumbar region; B35.4 Tinea corporis; M54.9 Dorsalgia, unspecified; G47.00 Insomnia, unspecified; F17.220 Nicotine dependence, chewing tobacco, uncomplicated; Z79.891 Long term (current) use of opiate analgesic; Z71.6 Tobacco abuse counseling | CPT/HCPCS: 99214 ==

== ENCOUNTER → 2020-09-28 13:23 | Outpatient (BNVA) | payer MEDICARE, MEDICAID, SELFPAY | PROVIDERS: PCP Internal Medicine; Visit Provider Nurse Practitioner | DX: G89.29 Other chronic pain (principal); M47.816 Spondylosis without myelopathy or radiculopathy, lumbar region; M51.36 Other intervertebral disc degeneration, lumbar region; S12.600A Unspecified displaced fracture of seventh cervical vertebra, initial encounter for closed fracture; X58.XXXA Exposure to other specified factors, initial encounter; F17.220 Nicotine dependence, chewing tobacco, uncomplicated; Z79.891 Long term (current) use of opiate analgesic | CPT/HCPCS: 99214; 99406 ==

== ENCOUNTER → 2020-11-28 13:13 | Outpatient (BNVA) | payer MEDICARE, MEDICAID, SELFPAY | PROVIDERS: PCP Internal Medicine; Visit Provider Anesthesiology | DX: G89.29 Other chronic pain (principal); M47.816 Spondylosis without myelopathy or radiculopathy, lumbar region; M51.36 Other intervertebral disc degeneration, lumbar region; M54.2 Cervicalgia; G47.00 Insomnia, unspecified; F17.220 Nicotine dependence, chewing tobacco, uncomplicated; Z79.891 Long term (current) use of opiate analgesic | CPT/HCPCS: 99214 ==

== ENCOUNTER → 2021-01-22 13:29 | Outpatient (BNVA) | payer MEDICARE, MEDICAID, SELFPAY | PROVIDERS: PCP Internal Medicine; Visit Provider Anesthesiology | DX: G89.29 Other chronic pain (principal); M47.816 Spondylosis without myelopathy or radiculopathy, lumbar region; M51.36 Other intervertebral disc degeneration, lumbar region; M54.2 Cervicalgia; F17.220 Nicotine dependence, chewing tobacco, uncomplicated; Z79.891 Long term (current) use of opiate analgesic; Z79.1 Long term (current) use of non-steroidal anti-inflammatories (NSAID); Z71.6 Tobacco abuse counseling | CPT/HCPCS: 99214 ==

== ENCOUNTER → 2021-04-03 09:26 | Outpatient (BNVA) | payer MEDICARE, MEDICAID, SELFPAY | PROVIDERS: PCP Internal Medicine; Visit Provider Anesthesiology | DX: G89.29 Other chronic pain (principal); M47.816 Spondylosis without myelopathy or radiculopathy, lumbar region; M51.36 Other intervertebral disc degeneration, lumbar region; M54.2 Cervicalgia; F17.220 Nicotine dependence, chewing tobacco, uncomplicated; Z79.891 Long term (current) use of opiate analgesic | CPT/HCPCS: 99214 ==

== ENCOUNTER → 2021-04-24 10:05 | Outpatient (BNVA) | payer MEDICARE, MEDICAID, SELFPAY | PROVIDERS: PCP Internal Medicine; Visit Provider Anesthesiology | DX: G89.29 Other chronic pain (principal); M47.816 Spondylosis without myelopathy or radiculopathy, lumbar region; M51.36 Other intervertebral disc degeneration, lumbar region; M54.2 Cervicalgia; B35.4 Tinea corporis; F17.220 Nicotine dependence, chewing tobacco, uncomplicated; Z79.891 Long term (current) use of opiate analgesic | CPT/HCPCS: 99214 ==

== ENCOUNTER 2021-09-03 16:44 | Outpatient (CLI) | payer MEDICARE, MEDICAID, SELFPAY ==
--- NOTE | 2021-09-03 17:02 | XR_ITS ---
WS: [id number] Exam: [place] [id number] Date/Time of Exam: 09/03/2021 5:02 PM Reason For Exam: bilateral knee pain No fracture or dislocation of either knee. There is moderate degenerative thinning of the bilateral m edial joint compartments. The pattern is bilaterally symmetrical. Osteopenia noted. Normal bilateral soft tissues. XR/[place] [id number] IMPRESSION: 1. Moderate degenerative narrowing of the medial joint compartments of both kne es. 2. Osteopenia.
== END 2021-09-03 16:45 | disposition home or self-care (01) ==
LOC: RAD 16:48
PROVIDERS: PCP Internal Medicine; Visit Provider Internal Medicine
DX: M25.562 Pain in left knee (principal); M25.561 Pain in right knee; M17.0 Bilateral primary osteoarthritis of knee
CPT/HCPCS: 73565

== ENCOUNTER → 2021-11-13 08:44 | Outpatient (BNVA) | payer MEDICARE, MEDICAID, SELFPAY | PROVIDERS: PCP Internal Medicine; Referring Provider Internal Medicine; Visit Provider Podiatrist Foot & Ankle Surgery | DX: L60.3 Nail dystrophy (principal) | CPT/HCPCS: 99203 ==

== ENCOUNTER → 2021-12-04 10:27 | Outpatient (BNVA) | payer MEDICARE, MEDICAID, SELFPAY | PROVIDERS: PCP Internal Medicine; Visit Provider Podiatrist Foot & Ankle Surgery | DX: L60.3 Nail dystrophy (principal); I73.9 Peripheral vascular disease, unspecified | CPT/HCPCS: 11721; 99214 ==

== ENCOUNTER → 2021-12-30 13:32 | Outpatient (BNVA) | payer MEDICARE, MEDICAID, SELFPAY | PROVIDERS: PCP Internal Medicine; Visit Provider Specialist | DX: M17.0 Bilateral primary osteoarthritis of knee (principal) | CPT/HCPCS: 73560; 73565; 99203; 99204 ==

== ENCOUNTER 2022-02-19 14:58 | Outpatient (CLI) | payer MEDICARE, MEDICAID, SELFPAY ==
--- NOTE | 2022-02-19 15:16 | MR_ITS ---
WS: [id number] MRI LEFT KNEE NONCONTRAST TECHNIQUE: Axial PD, coronal PD fat sat, coronal PD, sagittal PD, and sagittal PD fat-sat images obta ined. CLINICAL INFORMATION: knee pain COMPARISON: None. FINDINGS: Nondisplaced medial tibial plateau fracture with associated edema. This extends to the peripheral cor juni. In addition, this extends to posterior cortex also involving the tibial spines. 2 to 3 mm of dep ression. In addition, this across midline to involve the lateral tibial plateau with mild depression measuring 1.5 mm. Lateral meniscus is normal. Tear of the posterior horn medial meniscus with extension to the articula r surface. Chronic thinning of the medial meniscus. Moderate to advanced joint space narrowing medial joint compartment. Associated soft tissue edema murali ng the medial tibial plateau at the fracture site. Normal medial and lateral collateral ligaments. Mi ld chondromalacia patella. No subchondral edema. Normal popliteal fossa. Normal medial and lateral co llateral ligaments. MR/MR knee LT wo con* [id number] IMPRESSION: 1. Normal ACL and PCL. 2. Nondisplaced fracture involving the medial tibial plateau with depression m easuring 2-3 mm. Associated edema. This extends to the peripheral and posterior cortex. In addition, this extends to involve the tibial spines and across midl ine to involve the lateral tibial plateau with mild depression measuring 1.5 mm . 3. Chronic thinning of the medial meniscus with chronic intrasubstance signal abnormality. Additional horizontal tear involving the posterior horn medial men iscus extending to the articular surface. 4. Normal medial and lateral collateral ligaments. 5. Soft tissue edema along the medial tibial plateau. 6. Mild chondromalacia patella. Outbridge grading: grade III: partial-thickness cartilage loss with focal ulcer ation
== END 2022-02-19 14:59 | disposition home or self-care (01) ==
LOC: RAD 15:00
PROVIDERS: Visit Provider Specialist
DX: M22.42 Chondromalacia patellae, left knee (principal); R60.0 Localized edema
CPT/HCPCS: 73721

== ENCOUNTER → 2022-03-20 10:33 | Outpatient (BNVA) | payer MEDICARE, MEDICAID, SELFPAY | PROVIDERS: PCP Nurse Practitioner Family; Visit Provider Nurse Practitioner Family | DX: R53.83 Other fatigue (principal); I10 Essential (primary) hypertension; C92.11 Chronic myeloid leukemia, BCR/ABL-positive, in remission; Z79.891 Long term (current) use of opiate analgesic | CPT/HCPCS: 80053; 84443; 85025 ==

== ENCOUNTER → 2022-04-01 11:32 | Outpatient (BNVA) | payer MEDICARE, MEDICAID, SELFPAY | PROVIDERS: PCP Nurse Practitioner Family; Visit Provider Nurse Practitioner Family | DX: D64.9 Anemia, unspecified (principal); U07.1 COVID-19; Z79.891 Long term (current) use of opiate analgesic | CPT/HCPCS: 82306; 82607; 83540; 83550 ==

== ENCOUNTER → 2022-08-06 15:13 | Outpatient (BNVA) | payer MEDICARE, MEDICAID, SELFPAY | PROVIDERS: PCP Nurse Practitioner Family; Visit Provider Specialist | DX: I73.9 Peripheral vascular disease, unspecified (principal); M17.12 Unilateral primary osteoarthritis, left knee; L60.3 Nail dystrophy | CPT/HCPCS: 11721; 73560; 73565; 99204 ==

== ENCOUNTER → 2022-08-22 09:51 | Outpatient (BNVA) | payer MEDICARE, MEDICAID, SELFPAY | PROVIDERS: PCP Nurse Practitioner Family; Visit Provider Nurse Practitioner Family | DX: I10 Essential (primary) hypertension (principal); Z79.899 Other long term (current) drug therapy; F41.9 Anxiety disorder, unspecified; Z12.31 Encounter for screening mammogram for malignant neoplasm of breast; Z12.39 Encounter for other screening for malignant neoplasm of breast | CPT/HCPCS: 80053; 80061 ==

== ENCOUNTER 2022-09-18 13:55 | Outpatient (CLI) | payer MEDICARE, MEDICAID, SELFPAY ==
--- NOTE | 2022-09-18 14:05 | MM_ITS ---
WS: [id number] BILATERAL SCREENING DIGITAL TOMOSYNTHESIS MAMMOGRAM WITH CAD HISTORY: SCREENING COMPARISON: None available. Bilateral CC and MLO views with tomosynthesis and synthetic mammography submitted. Computer aided det ection analyzed. Breast composition: There are scattered areas of fibroglandular density. No suspicious masses, microc alcifications or architectural distortion. Extensive breast arterial calcifications. MM/[place] [id number] IMPRESSION: BI-RADS: 2-Benign FOLLOW UP: 1 Year Follow-up
== END 2022-09-18 13:56 | disposition home or self-care (01) ==
PROVIDERS: PCP Nurse Practitioner Family; Visit Provider Nurse Practitioner Family
DX: Z12.31 Encounter for screening mammogram for malignant neoplasm of breast (principal)
CPT/HCPCS: 77063; 77067; 80053; 80061

== ENCOUNTER → 2022-11-27 13:25 | Outpatient (BNVA) | payer MEDICARE, MEDICAID, SELFPAY | PROVIDERS: PCP Nurse Practitioner Family; Visit Provider Podiatrist Foot & Ankle Surgery | DX: L60.8 Other nail disorders (principal); L60.3 Nail dystrophy; I73.9 Peripheral vascular disease, unspecified | CPT/HCPCS: 11721 ==

== ENCOUNTER → 2022-12-04 13:20 | Outpatient (BNVA) | payer MEDICARE, MEDICAID, SELFPAY | PROVIDERS: PCP Nurse Practitioner Family; Referring Provider Nurse Practitioner Family; Visit Provider Physician Assistant | DX: M51.26 Other intervertebral disc displacement, lumbar region (principal); M41.54 Other secondary scoliosis, thoracic region; M41.56 Other secondary scoliosis, lumbar region; M51.36 Other intervertebral disc degeneration, lumbar region; M48.062 Spinal stenosis, lumbar region with neurogenic claudication; M46.1 Sacroiliitis, not elsewhere classified | CPT/HCPCS: 72110; 99203 ==

== ENCOUNTER → 2023-03-04 14:03 | Outpatient (BNVA) | payer MEDICARE, MEDICAID, SELFPAY | PROVIDERS: PCP Nurse Practitioner Family; Visit Provider Podiatrist Foot & Ankle Surgery | DX: L60.3 Nail dystrophy (principal); I73.9 Peripheral vascular disease, unspecified | CPT/HCPCS: 11721 ==

== ENCOUNTER → 2023-05-19 13:40 | Outpatient (BNVA) | payer MEDICARE, MEDICAID, SELFPAY | PROVIDERS: PCP Nurse Practitioner Family; Visit Provider Podiatrist Foot & Ankle Surgery | DX: I73.9 Peripheral vascular disease, unspecified (principal); L60.3 Nail dystrophy | CPT/HCPCS: 11721 ==

== ENCOUNTER → 2023-06-30 11:03 | Outpatient (BNVA) | payer MEDICARE, MEDICAID, SELFPAY | PROVIDERS: PCP Nurse Practitioner Family; Visit Provider Nurse Practitioner Family | DX: F41.9 Anxiety disorder, unspecified (principal); F32.A Depression, unspecified; J44.9 Chronic obstructive pulmonary disease, unspecified; D64.9 Anemia, unspecified; R53.83 Other fatigue; Z13.6 Encounter for screening for cardiovascular disorders; Z02.89 Encounter for other administrative examinations; E55.9 Vitamin D deficiency, unspecified; Z79.899 Other long term (current) drug therapy; J06.9 Acute upper respiratory infection, unspecified; L98.9 Disorder of the skin and subcutaneous tissue, unspecified; H91.90 Unspecified hearing loss, unspecified ear; H92.09 Otalgia, unspecified ear; G89.29 Other chronic pain | CPT/HCPCS: 80053; 80061; 81003; 82306; 82728; 83036; 83550; 84443; 85025; 87077; 87086; 87184 ==

== ENCOUNTER → 2023-07-14 14:39 | Outpatient (BNVA) | payer MEDICARE, MEDICAID, SELFPAY | PROVIDERS: PCP Nurse Practitioner Family; Referring Provider Nurse Practitioner Family; Visit Provider Dermatology | DX: L29.8 Other pruritus (principal); F42.4 Excoriation (skin-picking) disorder; L57.8 Other skin changes due to chronic exposure to nonionizing radiation; L81.4 Other melanin hyperpigmentation; L85.3 Xerosis cutis; R53.83 Other fatigue | CPT/HCPCS: 99204 ==

== ENCOUNTER → 2023-07-15 10:45 | Outpatient (BNVA) | payer MEDICARE, MEDICAID, SELFPAY | PROVIDERS: PCP Nurse Practitioner Family; Visit Provider Nurse Practitioner Family | DX: N39.0 Urinary tract infection, site not specified (principal); A49.9 Bacterial infection, unspecified | CPT/HCPCS: 81003 ==

== ENCOUNTER → 2023-09-08 13:26 | Outpatient (BNVA) | payer MEDICARE, MEDICAID, SELFPAY | PROVIDERS: PCP Nurse Practitioner Family; Visit Provider Podiatrist Foot & Ankle Surgery | DX: L60.8 Other nail disorders (principal); I73.9 Peripheral vascular disease, unspecified; L60.3 Nail dystrophy | CPT/HCPCS: 11721 ==

== ENCOUNTER → 2023-09-25 11:11 | Outpatient (BNVA) | payer MEDICARE, MEDICAID, SELFPAY | PROVIDERS: PCP Nurse Practitioner Family; Visit Provider Nurse Practitioner Family | DX: K59.04 Chronic idiopathic constipation (principal); M85.88 Other specified disorders of bone density and structure, other site; M41.85 Other forms of scoliosis, thoracolumbar region | CPT/HCPCS: 74018 ==

== ENCOUNTER → 2023-10-13 09:57 | Outpatient (BNVA) | payer MEDICARE, MEDICAID, SELFPAY | PROVIDERS: PCP Nurse Practitioner Family; Visit Provider Nurse Practitioner Family | DX: L29.8 Other pruritus (principal); L82.0 Inflamed seborrheic keratosis; K13.0 Diseases of lips; F42.4 Excoriation (skin-picking) disorder; L81.4 Other melanin hyperpigmentation | CPT/HCPCS: 17110; 99214 ==

== ENCOUNTER → 2023-10-16 08:01 | Outpatient (BNVA) | payer MEDICARE, MEDICAID, SELFPAY | PROVIDERS: PCP Nurse Practitioner Family; Visit Provider Nurse Practitioner Family | DX: N39.0 Urinary tract infection, site not specified (principal); A49.9 Bacterial infection, unspecified | CPT/HCPCS: 81003 ==

== ENCOUNTER 2023-10-26 09:52 | Outpatient (CLI) | payer MEDICARE, MEDICAID, SELFPAY ==
--- NOTE | 2023-10-26 10:00 | CT_ITS ---
WS: [id number] CT HEAD TECHNIQUE: Noncontrast CT of the head obtained from the skullbase to the vertex. CLINICAL INFORMATION: R55 - Syncope and collapse COMPARISON: CT 2019 DLP: 1015.[address] scans at [facility] use at least one of these dose optimization techniques: automated e xposure control; mA and/or kV adjustment per patient size (includes targeted exams where dose is matc hed to clinical indication); or iterative reconstruction. FINDINGS: No evidence of intracranial hemorrhage or mass effect. Ventricular system and basal cisterns are mccracken t. Moderate small vessel changes with mild parenchymal volume loss. No extra-axial fluid collections. No evidence of mass or mass effect. Vascular calcification. Patchy low-attenuation changes in the RI GHT lateral basal ganglia and internal capsule likely chronic. This is new since 2019. Chronic mucosal thickening RIGHT sphenoid sinus. Chronic sclerosis and mucosal thickening RIGHT masto id. Mucosal thickening LEFT mastoid. Normal visualized posterior nasopharynx. CT/CT head wo con* [id number] IMPRESSION: 1. No evidence of intracranial hemorrhage or mass effect. 2. Moderate small vessel changes with mild parenchymal volume loss progressed since 2019. 3. Areas of chronic ischemia in the RIGHT basal ganglia and internal capsule n ew since 2019 but has a chronic appearance. 4. Vascular calcification. 5. No acute intracranial findings.
== END 2023-10-26 09:53 | disposition home or self-care (01) ==
LOC: RAD 09:54
PROVIDERS: PCP Nurse Practitioner Family; Visit Provider Nurse Practitioner Family
DX: I67.89 Other cerebrovascular disease (principal); I67.2 Cerebral atherosclerosis; R55 Syncope and collapse; R51.9 Headache, unspecified
CPT/HCPCS: 70450; 81003

== ENCOUNTER 2023-10-26 09:59 | Outpatient (CLI) | payer MEDICARE, MEDICAID, SELFPAY ==
--- NOTE | 2023-10-26 10:23 | XR_ITS ---
WS: [id number] Examination: XR chest 2V* [id number] Reason for Exam: OTHER PRURITUS Date: October 26, 2023 Comparison: November 17, 2019 Findings: The heart is not enlarged. The mediastinum is not widened. There is hyperinflation with chronic change. There is no pulmonary edema. There is no large effusion or new dense consolidation. In the right midlung zone there is a nodular density which measures approximately 1 cm There is osteopenia. XR/XR chest 2V* [id number] Impression: There is a new right midlung nodule. Further evaluation with CT is needed. Chronic changes are present. I see no pulmonary edema or large effusion. I discussed the findings and recommendations with Yoandy Elmore at 11:09 a.m. Au 2023.
== END 2023-10-26 10:00 | disposition home or self-care (01) ==
LOC: RAD 10:00
PROVIDERS: PCP Nurse Practitioner Family; Visit Provider Nurse Practitioner Family
DX: L29.8 Other pruritus (principal); R91.1 Solitary pulmonary nodule; M85.80 Other specified disorders of bone density and structure, unspecified site
CPT/HCPCS: 71046

== ENCOUNTER → 2023-11-17 14:09 | Outpatient (BNVA) | payer MEDICARE, MEDICAID, SELFPAY | PROVIDERS: PCP Nurse Practitioner Family; Visit Provider Nurse Practitioner Family | DX: M16.12 Unilateral primary osteoarthritis, left hip (principal); M81.0 Age-related osteoporosis without current pathological fracture | CPT/HCPCS: 73502 ==

== ENCOUNTER → 2023-12-07 09:12 | Outpatient (BNVA) | payer MEDICARE, MEDICAID, SELFPAY | PROVIDERS: PCP Nurse Practitioner Family; Visit Provider Nurse Practitioner | DX: M70.62 Trochanteric bursitis, left hip (principal); M48.062 Spinal stenosis, lumbar region with neurogenic claudication; M25.551 Pain in right hip | CPT/HCPCS: 20610; 73502; 99214; J2795; J3301 ==

== ENCOUNTER → 2023-12-15 14:11 | Outpatient (BNVA) | payer MEDICARE, MEDICAID, SELFPAY | PROVIDERS: PCP Nurse Practitioner Family; Visit Provider Podiatrist Foot & Ankle Surgery | DX: I73.9 Peripheral vascular disease, unspecified (principal); L60.3 Nail dystrophy | CPT/HCPCS: 11721; 99212 ==

== ENCOUNTER 2024-01-13 14:06 | Outpatient (CLI) | payer MEDICARE, MEDICAID, SELFPAY ==
--- NOTE | 2024-01-13 14:30 | USCV_ITS ---
Catarina Joseph Age: 78 Gender: F : 1945 Exam Date: 01/13/2024 14:33 Ordering Phys: TALHA Chavarria APRN Technologist: CT Exam Location: [facility] [place] Indication: BP: 150 / 81 HR: 73 Rhythm: Sinus Technical Quality: Adequate MEASUREMENTS (Male / Female) Normal Values 2D ECHO LVOT Diameter 2.3 cm LV Ejection Fraction MOD 4C 57.0 % LV Ejection Fraction MOD 2C 65.3 % LV Ejection Fraction 2C AL 64.6 % LA Diameter 3.0 cm RA Systolic Volume 4C AL 27.1 ml RA Systolic Volume 4C MOD 27.9 ml LA Sys Volume AL 60.0 cm cubed LA Sys Volume Index AL 35.4 cm cubed/m squared Aorta at Sinotubular Diameter 2.9 cm IVC Diameter 1.4 cm M-MODE LA Ao Ratio MM 1.1 AV Cusp Separation MM 2.4 cm DOPPLER AV Peak Velocity 123.0 cm/s LVOT Peak Velocity 101.0 cm/s AV Area Cont Eq vti 3.2 cm squared AV Area Cont Eq pk 3.5 cm squared MV Peak Velocity 110.0 cm/s MV Area PHT 3.8 cm squared Mitral E to A Ratio 0.9 TV Peak Velocity 248.5 cm/s TR Peak Velocity 274.0 cm/s TR Peak Gradient 30.0 mmHg TV Peak E Velocity 63.0 cm/s Right Atrial Pressure 3.0 mmHg Pulmonary Artery Systolic Pressu 33.0 mmHg PV Peak Velocity 92.5 cm/s FINDINGS Left Ventricle Normal left ventricular size, systolic function and wall thickness, with no regional wall motion abnormalities. Estimated LVEF is normal 60%. Right Ventricle Normal right ventricular size and systolic function. Right Atrium Normal right atrial size. Left Atrium Normal left atrial size. Mitral Valve Structurally normal mitral valve. Mild to moderate mitral regurgitation with eccentric jet. Aortic Valve Mildly thickened aortic valve. No aortic valve stenosis. No aortic valve regurgitation. Tricuspid Valve Structurally normal tricuspid valve. No tricuspid valve regurgitation. Pulmonic Valve Structurally normal pulmonic valve. Trace pulmonary valve regurgitation. Pericardium No pericardial effusion. Aorta Normal size aortic root and proximal ascending aorta. IVC Normal inferior vena cava. CONCLUSIONS Normal LV systolic function. Estimated LVEF is normal 60%. Normal chamber sizes. Mild to moderate mitral regurgitation with eccentric jet. Normal right heart and pulmonary artery systolic pressure. Inocente Fletcher MD (Electronically Signed) Final Date: 13 January 2024 16:22 S
== END 2024-01-13 14:07 | disposition home or self-care (01) ==
LOC: RAD 14:08
PROVIDERS: PCP Nurse Practitioner Family; Visit Provider Nurse Practitioner Family
DX: I34.0 Nonrheumatic mitral (valve) insufficiency (principal); R55 Syncope and collapse; R06.02 Shortness of breath
CPT/HCPCS: 93306

== ENCOUNTER → 2024-03-29 09:21 | Outpatient (BNVA) | payer MEDICARE, MEDICAID, SELFPAY | PROVIDERS: PCP Nurse Practitioner Family; Visit Provider Nurse Practitioner | DX: M70.62 Trochanteric bursitis, left hip (principal); M70.61 Trochanteric bursitis, right hip; M48.062 Spinal stenosis, lumbar region with neurogenic claudication | CPT/HCPCS: 20610; 99213; J1100; J2795; J3301 ==

== ENCOUNTER 2024-04-20 11:39 | Outpatient (CLI) | payer MEDICARE, MEDICAID, SELFPAY ==
--- NOTE | 2024-04-20 11:46 | CT_ITS ---
WS: [id number] CT chest w con* [id number] HISTORY: OTHER PRURITUS, UPPER BACK TECHNIQUE: Axial imaging performed through the thorax. Coronal and sagittal reformats are submitted. All CT scans at [facility] use at least one of these dose optimization techniques: automated exposure control; mA and/or kV adjustment per patient size (includes targeted exams where dose is matched to clinical indication); or iterative reconstruction. CONTRAST: Omnipaque 350; 100 mL IV. DLP: 229.08 mGy.cm COMPARISON: 11/17/2019 Lungs and central airway: Hyperexpanded lungs. 3 mm noncalcified nodule in the anterior RIGHT upper lobe is reidentified and stable. Mild anterior pleural thickening and chronic lung disease. No new mass or nodule. Pleura: Normal. No pleural effusion. Heart and pericardium: Normal size heart with no pericardial effusion. Mediastinum and anisha: Bilateral hilar adenopathy. Largest lymph node on the RIGHT is 1.7 cm. Similar lymph nodes were seen in 2019. Vessels: Mild atherosclerosis aorta. Aberrant RIGHT subclavian artery. Chest wall and lower neck: No soft tissue masses. Upper abdomen: Stable 8 mm cyst lateral segment LEFT lobe of the liver. Visualized liver is otherwise negative. No adrenal mass. Visualized colon in the upper abdomen demonstrates constipation. Mild renal atrophy and cortical thinning. Osseous structures: No destructive process. CT/CT chest w con* [id number] IMPRESSION: 1. Stable 3 mm noncalcified nodule anterior RIGHT upper lobe since 2019. 2. No new mass or nodule. 3. Chronic lung disease with pleural interstitial thickening. 4. Stable 8 mm cyst lateral segment LEFT lobe of the liver. 5. Bilateral hilar adenopathy unchanged since 11/17/2019.
[2024-04-20 12:09] LABS: Blood Urea Nitrogen 9 mg/dL (8-23)
[2024-04-20] MEDS: iohexol 350 mg/mL 500 mL Btl (per mL) IV (12:14)
== END 2024-04-20 11:40 | disposition home or self-care (01) ==
PROVIDERS: PCP Nurse Practitioner Family; Visit Provider Nurse Practitioner Family
DX: L29.89 Other pruritus (principal); R91.1 Solitary pulmonary nodule; J98.4 Other disorders of lung; J92.9 Pleural plaque without asbestos; K76.89 Other specified diseases of liver; R59.0 Localized enlarged lymph nodes; R91.8 Other nonspecific abnormal finding of lung field; I70.0 Atherosclerosis of aorta; R93.89 Abnormal findings on diagnostic imaging of other specified body structures; N26.1 Atrophy of kidney (terminal)
CPT/HCPCS: 71260; 82565; 84520

== ENCOUNTER → 2024-07-05 14:18 | Outpatient (BNVA) | payer MEDICARE, MEDICAID, SELFPAY | PROVIDERS: PCP Nurse Practitioner Family; Visit Provider Internal Medicine Cardiovascular Disease | DX: R07.9 Chest pain, unspecified (principal) | CPT/HCPCS: 93005 ==

== ENCOUNTER → 2024-07-13 10:26 | Outpatient (BNVA) | payer MEDICARE, MEDICAID, SELFPAY | PROVIDERS: PCP Nurse Practitioner Family; Visit Provider Nurse Practitioner Family | DX: S70.02XA Contusion of left hip, initial encounter (principal); W19.XXXA Unspecified fall, initial encounter | CPT/HCPCS: 73502 ==

== ENCOUNTER 2024-08-30 09:54 | Outpatient (CLI) | payer OTHER, MEDICAID, SELFPAY ==
--- NOTE | 2024-08-30 09:00 | CT_ITS ---
WS: [id number] CT HEAD TECHNIQUE: Noncontrast CT of the head obtained from the skullbase to the vertex. CLINICAL INFORMATION: G45.9 - Transient cerebral ischemic attack, unspecified COMPARISON: 2023 DLP: 1030.[address] scans at [facility] use at least one of these dose optimization techniques: automated exposure control; mA and/or kV adjustment per patient size (includes targeted exams where dose is matched to clinical indication); or iterative reconstruction. FINDINGS: No evidence of intracranial hemorrhage or mass effect. Ventricular system and basal cisterns are patent. Moderate small vessel changes with mild parenchymal volume loss. No extra-axial fluid collections. No evidence of mass or mass effect. Vascular calcification. Paranasal sinuses are well aerated. Mucosal thickening RIGHT sphenoid sinus. Chronic sclerosis RIGHT mastoid air cells. Mucosal thickening in the mastoid tips. CT/CT head wo con* [id number] IMPRESSION: 1. No evidence of intracranial hemorrhage or mass effect. 2. Moderate small vessel changes with mild parenchymal volume loss appears sta ble 3. No acute intracranial findings.
== END 2024-08-30 09:55 | disposition home or self-care (01) ==
PROVIDERS: PCP Nurse Practitioner Family; Visit Provider Nurse Practitioner Family
DX: G45.9 Transient cerebral ischemic attack, unspecified (principal); I63.9 Cerebral infarction, unspecified; R93.0 Abnormal findings on diagnostic imaging of skull and head, not elsewhere classified; I67.2 Cerebral atherosclerosis; J34.89 Other specified disorders of nose and nasal sinuses; H74.8X3 Other specified disorders of middle ear and mastoid, bilateral
CPT/HCPCS: 70450

== ENCOUNTER 2024-08-31 07:50 | Outpatient (CLI) | payer OTHER, MEDICAID, SELFPAY ==
[2024-08-31 07:56] VITALS: BMI 23.0
--- NOTE | 2024-08-31 07:56 | ECG_ITS ---
[employer] [email or web address] Test Date: 2024-08-31 Pat Name: Catarina oJseph Department: Room: Gender: Female Manager Planning: : 1945 Requested By: Ishan Celis Order Number: [id number] Constantin MD: Kristina Negro M.D. Interpretive Statements Lung unchanged pre/post procedure; Intraprocedure shortess of breath; Symptoms resoled by discharge PROCEDURE: At the baseline, the EKG revealed sinus rhythm with frequent unifocal PVCs.. The baseline heart was 80 bpm with a blood pressue of 161/97 mm of Hg Lexiscan was infused over a period of 20 seconds. A total of 0.4 milligrams of Lexiscan was infused. The stress phase was continued for a total of 5 minutes. Heart rate at the end of the stress phase was 94 bpm with a blood pressure 152/94 mm of Hg. The EKG at the peak infusion revealed less frequent PVCs. Sestamibi was injected 20 seconds after the Lexiscan infusion. Heart rate at the end of the recovery phase was 90 bpm with a blood pressure of 165/92 mm of Hg. CONCLUSION: 1. No significant EKG changes with the LexiScan infusion 2. No LexiScan induced chest pain. Less frequent PVCs with the peak exercise 3. Normal blood pressure and heart rate response 4. Sestamibi/sestamibi perfusion scan pending; see separate report. Electronically Signed On 09-04-2024 22:00:15 CDT by Kristina Negro M.D. [email or web address]
--- NOTE | 2024-08-31 07:57 | NMCV_ITS ---
NM juan josé perf SPECT r/s* [id number] Catarina Joseph Age: 79 Gender: F : 1945 Exam Date: 08/31/2024 08:59 Ordering Phys: Ishan Celis MD ([email or web address]) Technologist: IGOR Keller Exam Location: [facility] Indications: cp STRESS TEST [facility] IMAGE PROTOCOL Rest/Stress 1 Lexiscan Day Radiopharmaceutical Dose (mCi) Administration Site Administered by Rest: Tc-99m 10.5 IV Renetta Smith CHEFS Sestamibi Stress:Tc-99m 32.4 IV Renetta Smith, CHEFS Sestamibi Rest: 31-Aug-2024 60 Discovery 630 Stress: 31-Aug-2024 30 Discovery 630 0.4mg Lexiscan. Supine position only as patient was unable to lay prone. SPECT RESULTS Technical Quality: Good Raw Data Analysis: Normal Image Corrections: No attenuation or motion correction applied Summed Stress Score: 0 Summed Rest Score: 0 Summed Difference Score: 0 PERFUSION FINDINGS Uniform myocardial tracer uptake with no significant perfusion abnormalities FUNCTIONAL RESULTS (calculated via Gated SPECT) Stress Image LV EF (%): 68 Stress EDV (mL):56 TID: 1.06 Stress ESV (mL):18 FUNCTIONAL FINDINGS: Segmental wall motion analysis revealing no gross wall motion abnormalities IMPRESSIONS 1. Myocardial perfusion imaging revealing uniform myocardial tracer uptake with no significant Perfusion normalities 2. Normal LV ejection fraction 68%. 3. LV wall motion analysis revealing no gross wall motion abnormalities. 4. Normal LV volume Low probability for coronary ischemia, based on the above findings No similar previous studies are available for comparison Dr Kristina Negro MD [facility] (Electronically Signed) Final Date: 31 August 2024 16:22 Amended: 31 August 2024 16:24 C
[2024-08-31] MEDS: regadenoson 0.4 Mg/5 ml Syringe IVP (09:24)
[2024-08-31 09:32] VITALS: BP 152/94; PULSE 91
== END 2024-08-31 07:51 | disposition home or self-care (01) ==
PROVIDERS: PCP Nurse Practitioner Family; Visit Provider Internal Medicine Cardiovascular Disease
DX: R07.9 Chest pain, unspecified (principal)
CPT/HCPCS: 36415; 78452; 93017; 96374; A9500; J2785

== ENCOUNTER → 2024-12-29 11:28 | Outpatient (BNVA) | payer MEDICARE, MEDICAID, SELFPAY | PROVIDERS: PCP Nurse Practitioner Family; Visit Provider Nurse Practitioner Family | DX: Z79.891 Long term (current) use of opiate analgesic (principal); I10 Essential (primary) hypertension; K21.9 Gastro-esophageal reflux disease without esophagitis; K44.9 Diaphragmatic hernia without obstruction or gangrene; D64.9 Anemia, unspecified; R53.82 Chronic fatigue, unspecified; Z79.899 Other long term (current) drug therapy | CPT/HCPCS: 80053; 80061; 81003; 82306; 82607; 82728; 82746; 83036; 83516; 83550; 84439; 84443; 85025; 87086 ==

== ENCOUNTER → 2025-01-03 15:55 | Outpatient (BNVA) | payer MEDICARE, MEDICAID, SELFPAY | PROVIDERS: PCP Nurse Practitioner Family; Visit Provider Internal Medicine Cardiovascular Disease | DX: I34.0 Nonrheumatic mitral (valve) insufficiency (principal); R07.9 Chest pain, unspecified; R00.2 Palpitations; Z87.891 Personal history of nicotine dependence; Z86.73 Personal history of transient ischemic attack (TIA), and cerebral infarction without residual deficits | CPT/HCPCS: 99214 ==

== ENCOUNTER → 2025-01-06 11:53 | Outpatient (BNVA) | payer MEDICARE, MEDICAID, SELFPAY | PROVIDERS: PCP Nurse Practitioner Family; Visit Provider Nurse Practitioner | DX: M70.61 Trochanteric bursitis, right hip (principal); M70.62 Trochanteric bursitis, left hip; M48.062 Spinal stenosis, lumbar region with neurogenic claudication; R26.81 Unsteadiness on feet | CPT/HCPCS: 20610; 73502; 99214; J1100; J2795; J3301; J9999 ==

== ENCOUNTER → 2025-01-17 10:15 | Outpatient (BNVA) | payer MEDICARE, MEDICAID, SELFPAY | PROVIDERS: PCP Nurse Practitioner Family; Visit Provider Nurse Practitioner Family | DX: E87.6 Hypokalemia (principal); R79.89 Other specified abnormal findings of blood chemistry; Z79.891 Long term (current) use of opiate analgesic | CPT/HCPCS: 80053; 81003; 84443 ==